=== PATIENT | male | born 1980 | race Hispanic/Latino ===

== ENCOUNTER → 2019-02-11 | Outpatient (CLI) | payer BC ==
--- NOTE | 2019-02-12 09:50 | US ---
EXAM DESCRIPTION: Liver: ULTRASOUND. CLINICAL HISTORY: ABNORMAL LFTs RESULT OF LIVER FUNCTION STUDIES COMPARISON: None. TECHNIQUE: Transabdominal scannin-dimensional and Doppler modes. FINDINGS: Gallbladder: normal size, shape, echogenicity; no intraluminal stones or sludge. No fluid around the gallbladder. No wall thickening. 2.4 mm. Non-tender with transducer pressure. Common bile duct: caliber 3.4 mm within normal limits. Liver: Increased homogeneous echogenicity; contour liver capsule smooth where seen. No fluid around the liver. Intrahepatic biliary ducts normal caliber. Doppler of the portal vein was not performed. Long axis right lobe 15.1 cm. Pancreas: normal size and echogenicity. Duct not seen. Right kidney: long axis measures 12.3 cm. Normal cortical echogenicity. Normal cortical thickness. No echogenic stones or hydronephrosis. Aorta proximal: 1.9 cm. IMPRESSION: 1. Fatty liver but not enlarged. Vascularity was not evaluated. Patient will be recalled in one week when returning from trip, and vascularity will be evaluated by Doppler. An addendum report will be generated. 2. No ascites. Normal gallbladder and duct. Pancreas is unremarkable. Right kidney negative. Normal caliber of the proximal abdominal aorta. Electronically signed by: Sascha Joel MD 02/12/2019 9:49 AM CDT
== END ==
LOC: US 09:34
PROVIDERS: ATTEND Nurse Practitioner Family
DX: R94.5 Abnormal results of liver function studies (principal); K76.0 Fatty (change of) liver, not elsewhere classified

== ENCOUNTER → 2020-04-12 | Outpatient (CLI) | payer OTHER | LOC: YCFC.O 15:20 | PROVIDERS: ATTEND Nurse Practitioner Family | DX: Z20.828 Contact with and (suspected) exposure to other viral communicable diseases (principal) ==